=== PATIENT | female | born 2000 ===

== ENCOUNTER 2023-06-06 18:37 | Emergency (ER) | payer SELFPAY ==
[2023-06-06 19:34] LABS: #Eosinphils 0.1 10x3/uL (0.0-0.5); #Monocytes 0.7 10x3/uL (0.0-1.1); #Neutrophils 4.3 10x3/uL (1.5-8.4); %Basophils 0.3 % (0.0-2.0); %Eosinophils 1.4 % (0.0-6.0); %Lymphocytes 20.6 % (18.0-47.0); %Monocytes 10.2 % (0.0-10.0); Hematocrit 29.2 % (34.9-44.5); Hemoglobin 8.7 g/dL (12.0-15.5); Mean Corpuscular HGB CONC 29.8 g/dL (32.0-36.0); Mean Corpuscular Hemoglobin 23.3 pg (27.0-33.0); Mean Corpuscular Volume 78.3 fl (81.6-98.3); Mean Platelet Volume 8.5 fl (7.4-10.4); Platelet Count 278 10x3/uL (150-450); RBC Distribution Width 16.9 % (11.5-14.5); Red Blood Cell (RBC) Count 3.73 10x6/uL (3.90-5.03); White Blood Cell (WBC) Count 6.4 10x3/uL (3.5-10.5)
[2023-06-06 19:42] LABS: ALT (SGPT) Less than 7 U/L (8-55); AST (SGOT) 13 U/L (5-34); Albumin 3.7 g/dL (3.5-5.0); Alkaline Phosphatase 40 U/L (40-110); Anion Gap 15 mmol/L (10-20); BUN (Urea Nitrogen) 7 mg/dL (7.0-18.7); Bilirubin, Total 0.3 mg/dL (0.2-1.2); Calc. Creatinine Clearance 0 mL/min (70-130); Carbon Dioxide 18 mmol/L (22-29); Chloride 112 mmol/L (98-107); Estimated GFR 125; Globulin 3.5 g/dL (2.4-3.5); Glucose 93 mg/dL (70-105); Protein, Total 7.2 g/dL (6.0-8.3); Sodium 142 mmol/L (136-145)
[2023-06-06 19:44] LABS: Troponin I Less than 0.010 ng/mL (< 0.028)
[2023-06-06] MEDS ORDERED: Acetaminophen 500 MG TAB ONE (20:21)
[2023-06-06] MEDS ORDERED: Potassium Chloride 20 MEQ TAB ONE (20:22)
== END 2023-06-06 21:34 | disposition home or self-care (01) ==
LOC: CSHERS 18:37
DX: U07.1 COVID-19 (principal); H92.03 Otalgia, bilateral
CPT/HCPCS: 36415; 71045; 80053; 84484; 85025; 85379; 93005; 96360